=== PATIENT | male | born 1985 | race Caucasian/White ===

== ENCOUNTER 2019-09-18 15:35 | Emergency (ER) | payer OTHER ==
[~2019-09-18] VITALS: Ht 188 cm; Wt 97.5 kg
[2019-09-18 16:54] LABS: ABSOLUTE BASOPHILS 0.1 thou/uL (0.0-0.2); ABSOLUTE EOSINOPHILS 0.1 thou/uL (0.0-0.7); ABSOLUTE LYMPHOCYTES 2.7 thou/uL (0.8-5.3); ABSOLUTE MONOCYTES 0.8 thou/uL (0.0-1.2); ABSOLUTE NEUTROPHILS 7.5 thou/uL (1.6-8.1); BASOPHILS 1.1 %; EOSINOPHILS 0.7 %; HEMATOCRIT 43.7 % (42.0-52.0); HEMOGLOBIN 15.2 gm/dL (14.0-18.0); LYMPHOCYTES 24.1 %; MCH 30.6 pg (26.0-34.0); MCHC 34.7 g/dL (28.0-37.0); MCV 88.1 fL (80.0-100.0); MONOCYTES 7.3 %; MPV 8.3 fl. (7.2-11.1); NUCLEATED RBCS 0 /100WBC; PLATELET COUNT* 333 thou/uL (150-400); POLYS 66.8 %; RBC 4.96 mil/uL (4.50-6.00); RDW-CV 12.9 % (10.5-14.5); WBC 11.2 thou/uL (4.0-11.0)
[2019-09-18 17:05] LABS: CALCIUM 8.9 mg/dL (8.5-10.1); CREATININE 1.2 mg/dL (0.6-1.3); POTASSIUM 4.6 mmol/L (3.5-5.1)
[2019-09-18 17:08] LABS: URIC ACID* 10.1 mg/dL (2.6-7.2)
[2019-09-18] MEDS ORDERED: INDOMETHACIN 5050 M1 PO (17:21)
[2019-09-18] MEDS ORDERED: NORCO 5-325 TA1 EAC1 PO (17:21)
[2019-09-18] MEDS ORDERED: PREDNISONE 10 M10 MG PO (17:21)
[2019-09-18 17:55] VITALS: BP 160/86
[2019-09-18 18:06] LABS: ESR (SEDRATE) 3 mm/hr (0-15)
== END 2019-09-18 17:56 | disposition home or self-care (01) ==
LOC: M.ERS 15:35
PROVIDERS: Nurse Practitioner Family
DX: M10.071 Idiopathic gout, right ankle and foot (principal); I10 Essential (primary) hypertension